=== PATIENT | male | born 1960 | race Caucasian/White ===

== ENCOUNTER 2023-06-05 06:36 | Outpatient (REF) | payer MEDICARE, SELFPAY ==
[2023-06-05 06:31] LABS: MANUAL DIFF FLAG NO
[2023-06-05 07:24] LABS: Basophils Percent Auto 0.6 % (0-2); Eosinophils Absolute Auto 0.3 X10*3/uL (0.0-0.4); Hematocrit 33.1 % (42.0-52.0); Hemoglobin 11.1 g/dl (14.0-18.0); Imm Gran Abs Auto 0.01 X10*3/uL (0.00-0.03); Imm Gran Pct Auto 0.2 % (0.0-0.4); Lymphocytes Absolute Auto 0.7 X10*3/uL (1.2-4.9); Lymphocytes Percent Auto 14.3 % (20-40); Mean Corpuscular HGB Conc 33.5 g/dl (31.0-36.0); Mean Corpuscular Hemoglobin 32.1 pg (27.0-33.0); Mean Corpuscular Volume 95.7 fL (80.0-98.0); Mean Platelet Volume 9.5 fL (9.4-12.4); Monocytes Absolute Auto 0.5 X10*3/uL (0.1-1.2); Monocytes Percent Auto 10.6 % (2-11); Neutrophils Absolute Auto 3.4 x10*3/uL (2.0-8.3); Neutrophils Percent Auto 68.3 % (45-73); Platelet Count 78 X10*3/uL (160-400); Red Blood Count 3.46 X10*6/uL (4.60-5.80); Red Cell Distribution Width 16.7 % (11.0-16.0)
[2023-06-05 07:53] LABS: Anion Gap 10 (12-20); Blood Urea Nitrogen 17 mg/dL (9-16); Carbon Dioxide 23 mmol/L (22-29); Chloride 101 mmol/L (96-108); Estimated Glomerular Filt Rate > 60; Glucose Random 110 mg/dL (60-115); Potassium 4.1 mmol/L (3.3-5.1); Sodium 130 mmol/L (135-145)
== END 2023-06-05 06:37 | disposition home or self-care (01) ==
LOC: HO.MMNH2L 06:36
PROVIDERS: Visit Provider Family Medicine
DX: K74.60 Unspecified cirrhosis of liver (principal)
CPT/HCPCS: 36415; 80048; 85025

== ENCOUNTER 2023-06-11 05:56 | Outpatient (REF) | payer MEDICARE, SELFPAY ==
[2023-06-11 05:51] LABS: MANUAL DIFF FLAG NO
[2023-06-11 07:00] LABS: Basophils Percent Auto 0.6 % (0-2); Eosinophils Absolute Auto 0.3 X10*3/uL (0.0-0.4); Eosinophils Percent Auto 4.5 % (0-4); Hematocrit 35.9 % (42.0-52.0); Imm Gran Abs Auto 0.02 X10*3/uL (0.00-0.03); Imm Gran Pct Auto 0.3 % (0.0-0.4); Lymphocytes Absolute Auto 0.9 X10*3/uL (1.2-4.9); Lymphocytes Percent Auto 13.7 % (20-40); Mean Corpuscular HGB Conc 33.4 g/dl (31.0-36.0); Mean Corpuscular Hemoglobin 31.8 pg (27.0-33.0); Mean Corpuscular Volume 95.2 fL (80.0-98.0); Monocytes Absolute Auto 0.6 X10*3/uL (0.1-1.2); Neutrophils Absolute Auto 4.5 x10*3/uL (2.0-8.3); Neutrophils Percent Auto 70.9 % (45-73); Red Blood Count 3.77 X10*6/uL (4.60-5.80); Red Cell Distribution Width 16.9 % (11.0-16.0); White Blood Count 6.3 X10*3/uL (4.8-10.8)
[2023-06-11 07:02] LABS: Anion Gap 12 (12-20); Blood Urea Nitrogen 17 mg/dL (9-16); Calcium 7.8 mg/dL (8.4-10.2); Carbon Dioxide 20 mmol/L (22-29); Chloride 101 mmol/L (96-108); Estimated Glomerular Filt Rate > 60; Glucose Random 100 mg/dL (60-115); Platelet Count 95 X10*3/uL (160-400); Potassium 4.6 mmol/L (3.3-5.1); Sodium 128 mmol/L (135-145)
== END 2023-06-11 05:57 | disposition home or self-care (01) ==
LOC: HO.MMNH2L 05:56
PROVIDERS: Visit Provider Family Medicine
DX: K74.60 Unspecified cirrhosis of liver (principal)
CPT/HCPCS: 36415; 80048; 85025

== ENCOUNTER 2023-06-29 19:13 | Inpatient (IN) | payer MEDICARE, SELFPAY ==
--- NOTE | ~2023-06-29 | CT_ITS ---
EXAMINATION: CT HEAD WITHOUT CONTRAST CLINICAL INFORMATION: Altered mental status. COMPARISON: None available. TECHNIQUE: Contiguous axial imaging was performed from the skull base to vertex without intravenous administration of contrast. This CT examination was performed using dose optimization techniques as appropriate, variously including the following: *Automated exposure control *Adjustment of mA and/or kV according to patient size (this includes techniques or standardized protocols for targeted exams where dose is matched to indication/reason for exam; i.e. extremities or head) *Use of iterative reconstruction technique DLP: 648 mGy-cm FINDINGS: There is no acute intra-axial, extra-axial bleed, masses or midline shift. There is no acute infarction in evolution. There is no edema. The osullivan to white matter differentiation is maintained normal. The lateral ventricles are symmetrical in size and configuration without enlargement. Bone windows reveal no calvarial abnormality. There is no scalp soft tissue abnormality. CT/CT head/brain wo IV con IMPRESSION: No acute intracranial process seen. .
--- NOTE | ~2023-06-29 | XR_ITS ---
EXAMINATION: XR chest 1V CLINICAL INFORMATION: Weakness COMPARISON: No prior chest x-ray of the TECHNIQUE: XR chest 1V Tubes and lines: None Lungs and pleura: Prominence of the pulmonary vasculature probably mild congestion. Crowding of lung markings probably right parahilar and right lower lobe infiltrates. Heart and mediastinum: Heart and mediastinum are widened exaggerated by AP technique and oblique projection.. Bones/soft tissue: Skeletal structures included are normal for patient's age. XR/XR chest 1V IMPRESSION: Limited portable x-ray oblique projection. * Mild vascular congestion. * Crowding of lung markings probably right parahilar and right lower lobe infiltrates. * Widened mediastinum exaggerated by AP technique and oblique projection. * Recommend correlation with follow-up chest PA and lateral when patient's condition permits.
--- NOTE | 2023-06-29 19:31 | ECG_ITS ---
Test Reason : ABNORMAL LABS Blood Pressure : / mmHG Vent. Rate : 069 BPM Atrial Rate : 069 BPM P-R Int : 174 ms QRS Dur : 106 ms QT Int : 384 ms P-R-T Axes : 009 014 013 degrees QTc Int : 411 ms Normal sinus rhythm Normal ECG No previous ECGs available Referred By: Krystina Andrews Electronically Signed By:JASPREET CRUZ
[2023-06-29 19:33] VITALS: BP 125/107; BP 152/76; PULSE 80; PULSE 84; RESP 18; TEMP 37.2; O2SAT 98; BMI 30.6
--- NOTE | 2023-06-29 19:41 | ED.RECABL ---
HPI - Recheck/Abnormal Lab/Rx General Chief Complaint: Recheck/Abnormal Lab/Rx Stated Complaint: HIGH POTASSIUM AND CREATINE Time Seen by Provider: 06/29/23 19:15 Source: patient and EMS Mode of arrival: EMS Limitations: altered mental status History of Present Illness HPI narrative: 63 yo male who has not been to our facility but usually goes to [facility] looks as if he was admitted to [facility] from [facility] just this month - he has a PMH of liver cirrhosis, liver failure, hep C, depression, esophageal varices, liver carcinoma, HTN, thrombosis of IVC EMS tells us he was sent from facility for high kidney function and high K we have no other history. The patient is sleepy cannot answer most questions he is alert and oriented to person and place - EMS states this is his baseline. He is FULL CODE [facility] records arrived 3 hours after request - review he was on palliative sorafenib, has non bandable varices, not a candidate for TIPS, on 06/12 ED admission K was 6.4 MD complaint: abnormal lab Initial visit (ago): day(s) (possibly today) Initial visit for: other (lab trend) Returns today for: called because of abnormal lab/test Description of abnormal result: high Context: called for abnormal lab result Associated symptoms: none Related Data Home Medications Medication Instructions Recorded Confirmed furosemide 40 mg tablet 40 mg PO DAILY 06/29/23 06/29/23 gabapentin 600 mg tablet 600 mg PO TID 06/29/23 06/29/23 lactulose 10 gram/15 mL oral 15 ml PO BID 06/29/23 06/29/23 solution methocarbamol 500 mg tablet 1,000 mg PO Q8H PRN Muscle Spasm 06/29/23 06/29/23 metoprolol tartrate 25 mg tablet 25 mg PO BID 06/29/23 06/29/23 oxycodone 5 mg tablet 5 mg PO Q6H PRN Pain 06/29/23 06/29/23 pantoprazole 40 mg tablet,delayed 40 mg PO DAILY 06/29/23 06/29/23 release rifaximin 550 mg tablet 550 mg PO BID 06/29/23 06/29/23 spironolactone 100 mg tablet 100 mg PO DAILY 06/29/23 06/29/23 tamsulosin 0.4 mg capsule 0.4 mg PO BEDTIME 06/29/23 06/29/23 tramadol 50 mg tablet 50 mg PO Q6H PRN Moderate Pain 06/29/23 06/29/23 (Scale Score 5-6) venlafaxine 37.5 mg tablet 37.5 mg PO DAILY 06/29/23 06/29/23 Allergies Allergy/AdvReac Type Severity Reaction Status Date / Time No Known Allergies Allergy Verified 06/29/23 22:11 Review of Systems Review of Systems: ROS unable to be obtained due to altered mental status [facility] Past Medical History Attestation statement: The following information was validated with the patient. Source: old records reviewed Medical History Alcoholic cirrhosis Liver carcinoma Hepatitis C Thrombosis of inferior vena cava HTN (hypertension) Melanoma Esophageal varices with bleeding in diseases classified elsewhere Social History Social History (Updated 06/29/23 @ 19:43 by Krystina Andrews DO) Patient Tobacco Use Status: Tobacco use Unknown Smoked in Last 30 Days: No Use of substances other than those prescribed or required for medical reasons: No Advance Directives: No Advance Directives Information Provided: No Physical Exam Vital Signs: Vital Signs: Last Vital Signs Temp 97.5 F 06/29/23 22:28 Pulse 77 06/29/23 22:28 Resp 15 06/29/23 22:28 BP 66/36 L 06/29/23 22:28 Pulse Ox 96 06/29/23 22:28 O2 Del Method Room Air 06/29/23 22:28 BMI result Body Mass Index 30.6 Appearance: Somnolent but wakes to voice. Oriented X2. No acute distress. much older than stated age Eyes: Pupils equal, round and reactive to light. ENT: Pharynx dry MM Neck: Normal inspection. Neck supple. CVS: Normal heart rate and rhythm. Pulses normal. Respiratory: No respiratory distress. Breath sounds normal. Abdomen: Soft does not grimace but he is slightly distended with ascites moderate Skin: Skin warm and dry. jaundice and pale skin color. poor skin turgor. Extremities: 2+ pitting lower extremity edema. shiny venous skin changes on both LE Neuro: Oriented X 1. No motor deficit. No sensory deficit. Course Course Course Narrative: call to Debbie - he was sleepy at oncology today he was sleepy had labs done at oncology office, has hx of elevated ammonia - he was sedated today but would have been alert and oriented around 230pm today. He told her he was cold and tired and weak. Liver carcinoma he is on sorafenib - taken off of it due to blood infection just left [facility] 10 days ago. FULL CODE, go ahead with HD. Reevaluation(s) Reevaluation #1: suspect lactic acidosis is due to chronic liver failure and dehydration and not infection or severe sepsis, has SHASHANK and elevated K - will give fluids and calcium HCO3, albuterol lokelma and consult renal IBW for patient who is obese is 156 lbs = 70 kg x 30 cc = 2126 but concern for fluid overload will start albumin and NS 500 cc Reevaluation #2: consult to nephrology 917pm Reevaluation #3: spoke to Dr. Andrade - midodrine 5mg TID, albumin Q6hr, medically manage the hyperkalemia at this time repeat BMP in 3 hours. hold diuretics. daughter Adrianna notified of plan at this time the patient will be started on antibiotics given acute change in kidney function and AMS I cannot rule out infection I have no records from [facility] possible infection suspected at this time as cause of decompensation IV cefepime ordered 937pm. SWITCHED TO MEROPENEM - ESBL + E . COLI BACTEREMIA FOLLOWING UGIB AT [facility] NO OTHER RECORDS GIVEN JUST CULTURES - 06/12 CULTURE Additional Reevaluation(s): patient became hypotensive and daughter Adrianna is at bedside I discussed with her and she called her mother about need for pressors and aggressive care at this time given his illness and poor prognosis and his treatment at [facility] is palliative and there is no cure they want to proceed with POTTERY STRIPER status - I have discussed what this means with them, ordered PRN medications and a morphine drip Medications Administered Generic Name Dose Route Start Last Admin Trade Name Freq PRN Reason Stop Dose Admin Morphine Sulfate 100 mg in 100 mls @ 0 mls/hr 06/29/23 23:00 06/30/23 00:57 Morphine Sulfate/Ns IVCONT 6 mg/hr .Q0M CARLOS 6 mls/hr Infusion Protocol Per Protocol Midazolam HCl 2 mg 06/29/23 22:46 06/30/23 00:19 Midazolam Hcl Oral Syrup 5 Mg/2.5 Ml Syrup PO 2 mg Q3H PRN Administration Anxiety Discontinued Medications Generic Name Dose Route Start Last Admin Trade Name Freq PRN Reason Stop Dose Admin Albuterol Sulfate 5 mg 06/29/23 21:10 06/29/23 21:20 Albuterol Sulfate (0.083%) 2.5 Mg/3 Ml Vial.Neb INHALE 06/29/23 21:11 5 mg ONCE ONE Administration Dextrose 25 gm 06/29/23 21:26 06/29/23 21:35 Dextrose 50 % 25 Gm/50 Ml Syringe IVPUSH 06/29/23 21:27 25 gm ONCE ONE Administration Calcium Gluconate 2 gm in 100 mls @ 50 mls/hr 06/29/23 21:09 06/29/23 23:21 Calcium Gluconate IV 06/29/23 23:08 Infused ONCE ONE Infusion Sodium Chloride 500 mls @ 500 mls/hr 06/29/23 21:15 06/29/23 22:39 Ns IV 06/29/23 22:14 Infused .Q1H CARLOS Infusion Albumin Human 100 mls @ 100 mls/hr 06/29/23 21:30 06/29/23 22:39 Kedbumin 25 % IV 06/30/23 16:29 Infused Q6H CARLOS Infusion Meropenem 1 gm/ Sodium 100 mls @ 200 mls/hr 06/29/23 22:08 06/29/23 22:39 Chloride IV 06/29/23 22:37 Infused ONCE ONE Infusion Insulin Human Regular 5 unit 06/29/23 21:26 06/29/23 21:36 Insulin Regular, Human 100 Unit/Ml 3 Ml Vial IVPUSH 06/29/23 21:27 5 unit ONCE ONE Administration Midodrine 5 mg 06/29/23 21:27 06/29/23 21:54 Midodrine Hcl 5 Mg Tablet PO 06/29/23 21:28 5 mg ONCE ONE Administration Scopolamine 1.5 mg 06/29/23 22:46 06/29/23 23:45 Scopolamine 1.5 Mg Patch.Td.3 EAR-BEHIND 06/29/23 22:47 1.5 mg ONCE ONE Administration Sodium Bicarbonate 50 meq 06/29/23 21:10 06/29/23 21:14 Sodium Bicarbonate 8.4% 50 Meq/50 Ml Syringe IVPUSH 06/29/23 21:11 50 meq ONCE ONE Administration Sodium Zirconium Cyclosilicate 5 gm 06/29/23 21:10 06/29/23 21:14 Sodium Zirconium Cyclosilicate 5 Gm Powd.Pack PO 06/29/23 21:11 5 gm ONCE ONE Administration Medical Decision Making Medical Decision Making MDM Narrative: 63 yo male who has not been to our facility but usually goes to [facility] looks as if he was admitted to [facility] from [facility] just this month - he has a PMH of liver cirrhosis, liver failure, hep C, depression, esophageal varices, liver carcinoma, HTN, thrombosis of IVC here with c/o weakness, sedation reported abnormal labs at this time basic labs, CXR, UA, ammonia level. No reported infections at this time suspect possible liver decompensation. I am going to call family and get records from [facility] as well as there is no real history at this time. He has no abdominal pain to suggest SBP. Differential Diagnosis Differential Diagnoses: The differential diagnosis associated with the presentation includes hepatic encephalopathy, SHASHANK, dehydration, lyte abnormality, liver decompensation Admission/Observation Consideration of admission/observation: Escalation of care including admission/observation considered will observe in ED but hospitalist agrees to admit as POTTERY STRIPER if patient remains on morphine drip Consult Healthcare Provider Management of the patient was discussed with: Hospitalist and Fnp (nephrology) Lab Data [facility] Lab Attestation statement: I reviewed the patient's lab results. 06/29/23 20:35 06/29/23 20:35 Labs: Lab Results 06/29/23 06/29/23 06/29/23 Range/Units 20:35 20:50 20:55 WBC 3.7 L (4.8-10.8) X10*3/uL RBC 3.01 L (4.60-5.80) X10*6/uL Hgb 9.4 L (14.0-18.0) g/dl Hct 27.7 L (42.0-52.0) % MCV 92.0 (80.0-98.0) fL MCH 31.2 (27.0-33.0) pg MCHC 33.9 (31.0-36.0) g/dl RDW 18.3 H (11.0-16.0) % Plt Count 101 L (160-400) X10*3/uL MPV 11.1 (9.4-12.4) fL Immature Gran % (Auto) 0.5 H (0.0-0.4) % Neut % (Auto) 81.3 H (45-73) % Lymph % (Auto) 9.8 L (20-40) % Slope % (Auto) 6.0 (2-11) % Eos % (Auto) 1.9 (0-4) % Baso % (Auto) 0.5 (0-2) % Lymph # (Auto) 0.4 L (1.2-4.9) X10*3/uL [place] # (Auto) 0.2 (0.1-1.2) X10*3/uL Eos # (Auto) 0.1 (0.0-0.4) X10*3/uL Baso # (Auto) 0.0 (0.0-0.2) X10*3/uL Abs Immat Gran (auto) 0.02 (0.00-0.03) X10*3/uL Absolute Neuts (auto) 3.0 (2.0-8.3) x10*3/uL Absolute Nucleated RBC 0.020 H (0.0-0.012) X10*3/uL Nucleated RBC % (auto) 0.5 H (0.0-0.2) /100WBC Smear Tech's Comments VERIFIED PT 19.1 H (11.1-13.3) SEC INR 1.6 H (0.9-1.1) VBG pH 7.36 (7.32-7.43) VBG pCO2 29 mmHg VBG pO2 42 mmHg VBG HCO3 16 L (22-26) mmol/L VBG O2 Saturation 64.0 % VBG Base Excess -7.4 mmol/L Sodium 126 L (135-145) mmol/L Potassium 7.1 H* D (3.3-5.1) mmol/L Chloride 99 (96-108) mmol/L Carbon Dioxide 14 L (22-29) mmol/L Anion Gap 20 (12-20) BUN 49 H (9-16) mg/dL Creatinine 2.48 H (0.5-1.4) mg/dL Estim Creat Clear Calc 33.5 Estimated GFR 26 POC Glucose (60-115) mg/dL Random Glucose 62 (60-115) mg/dL Lactic Acid 4.0 H* (0.5-2.0) mmol/L Calcium 7.9 L (8.4-10.2) mg/dL Magnesium 2.5 (1.6-2.6) mg/dL Total Bilirubin 3.5 H (0.0-1.0) mg/dL Direct Bilirubin 2.5 H (0.0-0.5) mg/dL AST 95 H (5-37) U/L ALT 50 H (0-40) U/L Alkaline Phosphatase 173 H (39-117) U/L Ammonia 38 (13-55) umol/L Total Creatine Kinase 108 (38-174) U/L B-Natriuretic Peptide 383 H (<100) pg/mL Total Protein 5.1 L (6.5-8.0) g/dL Albumin 1.7 L (3.5-5.0) g/dL Procalcitonin 1.07 ng/mL Urine Color Urine Appearance Urine pH (5.0-9.0) Ur Specific [place] (1.005-1.025) Urine Protein (Neg-Trace) mg/dL Urine Glucose (UA) (Negative) mg/dL Urine Ketones (Negative) mg/dL Urine Blood (Negative) Urine Nitrite (Negative) Ur Leukocyte Esterase (Negative) Urine RBC (0-2) /HPF Urine WBC (0-5) /HPF Ur Squamous Epith Cells (0-2) /HPF Urine Bacteria (None Seen) Hyaline Casts (0-2) /LPF Ur Random Sodium mmol/L Urine Creatinine mg/dL 06/29/23 06/29/23 Range/Units 22:34 22:41 WBC (4.8-10.8) X10*3/uL RBC (4.60-5.80) X10*6/uL Hgb (14.0-18.0) g/dl Hct (42.0-52.0) % MCV (80.0-98.0) fL MCH (27.0-33.0) pg MCHC (31.0-36.0) g/dl RDW (11.0-16.0) % Plt Count (160-400) X10*3/uL MPV (9.4-12.4) fL Immature Gran % (Auto) (0.0-0.4) % Neut % (Auto) (45-73) % Lymph % (Auto) (20-40) % Slope % (Auto) (2-11) % Eos % (Auto) (0-4) % Baso % (Auto) (0-2) % Lymph # (Auto) (1.2-4.9) X10*3/uL [place] # (Auto) (0.1-1.2) X10*3/uL Eos # (Auto) (0.0-0.4) X10*3/uL Baso # (Auto) (0.0-0.2) X10*3/uL Abs Immat Gran (auto) (0.00-0.03) X10*3/uL Absolute Neuts (auto) (2.0-8.3) x10*3/uL Absolute Nucleated RBC (0.0-0.012) X10*3/uL Nucleated RBC % (auto) (0.0-0.2) /100WBC Smear Tech's Comments PT (11.1-13.3) SEC INR (0.9-1.1) VBG pH (7.32-7.43) VBG pCO2 mmHg VBG pO2 mmHg VBG HCO3 (22-26) mmol/L VBG O2 Saturation % VBG Base Excess mmol/L Sodium (135-145) mmol/L Potassium (3.3-5.1) mmol/L Chloride (96-108) mmol/L Carbon Dioxide (22-29) mmol/L Anion Gap (12-20) BUN (9-16) mg/dL Creatinine (0.5-1.4) mg/dL Estim Creat Clear Calc Estimated GFR POC Glucose 63 (60-115) mg/dL Random Glucose (60-115) mg/dL Lactic Acid (0.5-2.0) mmol/L Calcium (8.4-10.2) mg/dL Magnesium (1.6-2.6) mg/dL Total Bilirubin (0.0-1.0) mg/dL Direct Bilirubin (0.0-0.5) mg/dL AST (5-37) U/L ALT (0-40) U/L Alkaline Phosphatase (39-117) U/L Ammonia (13-55) umol/L Total Creatine Kinase (38-174) U/L B-Natriuretic Peptide (<100) pg/mL Total Protein (6.5-8.0) g/dL Albumin (3.5-5.0) g/dL Procalcitonin ng/mL Urine Color Dark Yellow Urine Appearance Clear Urine pH 5.0 (5.0-9.0) Ur Specific [place] 1.015 (1.005-1.025) Urine Protein Trace (Neg-Trace) mg/dL Urine Glucose (UA) Negative (Negative) mg/dL Urine Ketones Trace (Negative) mg/dL Urine Blood Moderate (2+) H (Negative) Urine Nitrite Negative (Negative) Ur Leukocyte Esterase Small (1+) H (Negative) Urine RBC 6-10 H (0-2) /HPF Urine WBC 0-5 (0-5) /HPF Ur Squamous Epith Cells 6-10 (0-2) /HPF Urine Bacteria None Seen (None Seen) Hyaline Casts >20 (0-2) /LPF Ur Random Sodium < 20.0 mmol/L Urine Creatinine 145.96 mg/dL Independent Interpretation I performed an independent interpretation of an: EKG, Plain X-Ray and CT Scan (no ich) Interpretation: Rate: 69 Rhythm: NSR [place]: normal Normal P waves. Normal JOHN. slightly wide QRS ST T wave : normal no TRE no peaking of t waves qTC: normal prior studies: no priors but no acute ischemia The study has been interpreted contemporaneously by me. . Radiology Impression Discussion of test interpretation with radiology: I have reviewed the radiologist's reading. Independent Historian Clinical information obtained from an independent historian. History obtained from or confirmed by: Spouse and EMS External Record Review External record reviewed: Outpatient record and Prior outpatient labs Critical Care Time Critical Care Time Critical Care Time: Yes Total Critical Care Time: 90 Attestation: review of records, treatment of hyperkalemia, family consult, medical consult, IVF, I attest to this time spent taking care of the patient Discharge Plan Discharge Clinical Impression: SHASHANK (acute kidney injury), Acute hyperkalemia, Somnolence Cirrhosis Qualifiers: Hepatic cirrhosis type: alcoholic cirrhosis Ascites presence: with ascites Qualified Code(s): K70.31 - Alcoholic cirrhosis of liver with ascites Patient Disposition: Still a Patient Prescriptions: No Action furosemide 40 mg tablet 40 mg PO DAILY methocarbamol 500 mg Tablet 1,000 mg PO Q8H PRN (Reason: Muscle Spasm) gabapentin 600 mg Tablet 600 mg PO TID spironolactone 100 mg tablet 100 mg PO DAILY tramadol 50 mg Tablet 50 mg PO Q6H PRN (Reason: Moderate Pain (Scale Score 5-6)) tamsulosin 0.4 mg Capsule 0.4 mg PO BEDTIME pantoprazole 40 mg Tablet,Delayed Release (Dr/Ec) 40 mg PO DAILY venlafaxine 37.5 mg Tablet 37.5 mg PO DAILY oxycodone 5 mg Tablet 5 mg PO Q6H PRN (Reason: Pain) metoprolol tartrate 25 mg Tablet 25 mg PO BID lactulose 10 gram/15 mL Solution 15 ml PO BID rifaximin 550 mg Tablet 550 mg PO BID Sepsis Bolus Exclusion Sepsis Bolus Exclusion CHF/Renal Failure This patient met severe sepsis criteria due to the following condition(s):: Lactate>=4mmol/L In my clinical judgement the administration of 30 ml/kg of crystalloid would be detrimental to this patient due to the patient's following conditions:: Concern for fluid overload Replace the 30 mls/kg with (*zero amount not acceptable): Crystalloids amount given in mls: (rate must be at least 150cc/hr): 500 Colloids amount given in mls:: 100
[2023-06-29 19:49] VITALS: BP 108/66; PULSE 84; RESP 18; TEMP 37.2; O2SAT 98
--- NOTE | 2023-06-29 20:49 | PC.NURSE ---
Pt is a hard stick, multiple techs have tried. I placed an IV in the right AC and was able to obtain bloodwork. Pt is resting in bed at this time. He is A&x4, but sleepy and slow to respond, which is baseline per EMS.
[2023-06-29 20:52] LABS: PLT CLUMP 1; SCAN SMEAR FLAG 1
[2023-06-29 20:53] LABS: Basophils Percent Auto 0.5 % (0-2); Eosinophils Absolute Auto 0.1 X10*3/uL (0.0-0.4); Eosinophils Percent Auto 1.9 % (0-4); Hematocrit 27.7 % (42.0-52.0); Hemoglobin 9.4 g/dl (14.0-18.0); Imm Gran Abs Auto 0.02 X10*3/uL (0.00-0.03); Imm Gran Pct Auto 0.5 % (0.0-0.4); Lymphocytes Absolute Auto 0.4 X10*3/uL (1.2-4.9); Lymphocytes Percent Auto 9.8 % (20-40); MANUAL DIFF FLAG SCAN; Mean Corpuscular HGB Conc 33.9 g/dl (31.0-36.0); Mean Corpuscular Hemoglobin 31.2 pg (27.0-33.0); Mean Platelet Volume 11.1 fL (9.4-12.4); Monocytes Absolute Auto 0.2 X10*3/uL (0.1-1.2); NRBC Pct Auto 0.5 /100WBC (0.0-0.2); Neutrophils Percent Auto 81.3 % (45-73); Red Blood Count 3.01 X10*6/uL (4.60-5.80); Red Cell Distribution Width 18.3 % (11.0-16.0)
[2023-06-29 20:55] LABS: White Blood Count 3.7 X10*3/uL (4.8-10.8)
[2023-06-29 20:56] LABS: Platelet Count 101 X10*3/uL (160-400)
[2023-06-29 21:00] LABS: Venous Blood Gas Refer to POC result
[2023-06-29 21:00] LABS: VBG Base Excess -7.4 mmol/L; VBG HCO3 16 mmol/L (22-26); VBG pCO2 29 mmHg; VBG pH 7.36 (7.32-7.43); VBG pO2 42 mmHg
[2023-06-29 21:09] LABS: Ammonia 38 umol/L (13-55)
[2023-06-29 21:10] LABS: Alanine Aminotransferase 50 U/L (0-40); Albumin Level 1.7 g/dL (3.5-5.0); Alkaline Phosphatase 173 U/L (39-117); Anion Gap 20 (12-20); Aspartate Amino Transferase 95 U/L (5-37); Bilirubin Direct 2.5 mg/dL (0.0-0.5); Bilirubin Total 3.5 mg/dL (0.0-1.0); Blood Urea Nitrogen 49 mg/dL (9-16); Calcium 7.9 mg/dL (8.4-10.2); Carbon Dioxide 14 mmol/L (22-29); Chloride 99 mmol/L (96-108); Creatinine Clr Calc Pharmacy 33.5; Estimated Glomerular Filt Rate 26; Glucose Random 62 mg/dL (60-115); Magnesium 2.5 mg/dL (1.6-2.6); Potassium 7.1 mmol/L (3.3-5.1); Sodium 126 mmol/L (135-145); Total Protein 5.1 g/dL (6.5-8.0)
[2023-06-29 21:12] LABS: INTERNATIONAL NORM RATIO 1.6 (0.9-1.1); Prothrombin Time 19.1 SEC (11.1-13.3)
[2023-06-29] MEDS: Calcium Gluconate/NaCl,Iso-Osm 2 GM/100 ML PLAST..BAG IV (21:14)
[2023-06-29] MEDS: Sodium Zirconium Cyclosilicate 5 GM POWD.PACK PO (21:14)
[2023-06-29] MEDS: Sodium Bicarbonate 8.4% 50 MEQ/50 ML SYRINGE IVPUSH (21:14)
[2023-06-29 21:19] LABS: B Type Natriuretic Peptide 383 pg/mL (<100)
[2023-06-29] MEDS: Albuterol Sulfate (0.083%) 2.5 MG/3 ML VIAL.NEB 5 MG INHALE (21:20)
[2023-06-29] MEDS: 0.9 % Sodium Chloride 500 ML IV (21:21)
[2023-06-29 21:22] LABS: Procalcitonin 1.07 ng/mL
[2023-06-29 21:24] LABS: SLIDE REVIEW VERIFIED
[2023-06-29] MEDS: Dextrose 50 % 25 GM/50 ML SYRINGE IVPUSH (21:35)
[2023-06-29] MEDS: Albumin Human 25 % 100 ML IV (21:35)
[2023-06-29] MEDS: Insulin Regular, Human 100 UNIT/ML 3 ML VIAL IVPUSH (21:36)
--- NOTE | 2023-06-29 21:38 | PHA.MEDREC ---
Pharmacy Consult ? Medication Reconciliation Pharmacy has completed the medication reconciliation. Patient came from [facility] with medication list. Miriam Espinoza, EzequielD
[2023-06-29] MEDS: Midodrine HCl 5 MG TABLET PO (21:54)
[2023-06-29 22:28] VITALS: BP 66/36; PULSE 77; RESP 15; TEMP 36.4; O2SAT 96
[2023-06-29 22:40] LABS: Appearance Urine Clear; Color Urine Dark Yellow; Glucose Urine UA Negative (Negative); Leukocyte Esterase Urine Small (1+) (Negative); Nitrite Urine Negative (Negative); Specific Gravity - Urine 1.015 (1.005-1.025); UMIC TRIGGER UACC YES; Urine Blood Moderate (2+) (Negative); Urine Ketones Trace mg/dL (Negative); Urine Protein Trace mg/dL (Neg-Trace)
--- NOTE | 2023-06-29 22:41 | PC.NURSE ---
Pt has a 16fr dean catheter in, initial output approx 500mL of yellow urine with a little bit of sediment. Pt has bilateral 20g IV, medicated per MAR. Family is at the bedside at this time with Dr. Andrews. Pt is uncomfortable, reporting pain all over. Auditory wheezing is heard. Pt has low BP (68/47) and low POC (63), MD aware. Pt is now going to be on comfort measures, goal is to keep pt comfortable, per MD.
[2023-06-29 22:45] LABS: Glucose, Whole Blood 63 mg/dL (60-115)
[2023-06-29 22:51] LABS: Creatinine Urine 145.96 mg/dL; Sodium Urine Random < 20.0 mmol/L
[2023-06-29 22:56] LABS: Reflex Lactate? Lactic Acid Added
[2023-06-29 23:00] LABS: Bacteria Urine None Seen (None Seen); Hyaline Casts Urine >20 /LPF (0-2); UACC Culture Trigger YES; WBC Urine 0-5 /HPF (0-5)
[2023-06-29] MEDS: Morphine Sulfate/NS 100 MG/100 ML PLAST..BAG IVCONT (23:37)
[2023-06-29] MEDS: Scopolamine 1.5 MG PATCH.TD.3 EAR-BEHIND (23:45)
[2023-06-30] MEDS: Midazolam HCl Oral Syrup 5 MG/2.5 ML SYRUP 2 MG PO (00:19)
--- NOTE | 2023-06-30 00:24 | PC.NURSE ---
Report given to Jackelyn TORRES in Overflw, pt moved to overflow room 4. Pt was moved to hospital bed and cleaned, comfort ensured. At time of handoff, pt was running at 2mg/hr on the [employer]. 4 family members at bedside, refreshments and comfort items offered.
--- NOTE | 2023-06-30 00:38 | PC.NURSE ---
Addendum entered by Jackelyn Gonsalez RN 06/30/23 02:24: 0220- O2 sats is 85% on room air. RR is 15. Pt is sleeping. Kept on 6mg/hr morphine drip. Family requested to keep the rate. Addendum entered by Jackelyn Gonsalez RN 06/30/23 01:04: 0057- Morphine drip is titrated to 6mg/hr , family reported that patient is having some more pain. Original Note: Acquired care at 0020 past midnight. Came from ED via stretcher, transferred to overflow bed 4 under comfort measures only. Family at bedside. Pt on morphine drip of 2mg per hour. Pt is comfortable this time. Dyspniec with exertion. Pt given PO midazolam 2m mg PRN.
[2023-06-30 01:01] LABS: Cancel Lactic Acid Canceled
[2023-06-30 02:16] VITALS: RESP 15; O2SAT 85
[2023-06-30 04:00] VITALS: RESP 16
[2023-06-30 05:24] VITALS: RESP 20; O2SAT 95
--- NOTE | 2023-06-30 06:44 | PM.IMHP ---
History of Present Illness Date of Service: 06/30/23 Chief Complaint: Abnormal labs This is a 63-year-old male with past medical history of liver cirrhosis, liver failure, hep C, depression, esophageal varices, liver carcinoma, HTN, thrombosis of a BC, who comes into the hospital from [facility] after being discharged from [facility] this month. It appears the patient had labs done at the facility which showed high potassium and kidney disorder. Patient is on palliative Sorafenib. It appears the patient was seen by his oncology office and he had labs done which showed elevated ammonia and worsening kidney function as well as a. Further workup in the ED showed significant lactic acidosis as well as hypotension and dehydration, patient has SHASHANK and elevated K, also has history of ESBL E coli bacteremia well in the ED patient became significantly hypotensive. 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 Patient will be admitted for comfort measure Review of Systems Review of Systems: Yes Unobtainable due to mental condition and Unobtainable due to mental status COUNT INCLUDES THE [facility] Medical History Alcoholic cirrhosis Liver carcinoma Hepatitis C Thrombosis of inferior vena cava HTN (hypertension) Melanoma Esophageal varices with bleeding in diseases classified elsewhere Social History (Updated 06/29/23 @ 19:43 by Krystina Andrews DO) Patient Tobacco Use Status: Tobacco use Unknown Smoked in Last 30 Days: No Use of substances other than those prescribed or required for medical reasons: No Advance Directives: No Advance Directives Information Provided: No Meds Allergies Allergy/AdvReac Type Severity Reaction Status Date / Time No Known Allergies Allergy Verified 06/29/23 22:11 Active Medications: Current Medications Morphine Sulfate (Morphine Sulfate/Ns) 100 mg in 100 mls @ 0 mls/hr IVCONT .Q0M [facility]; Protocol Last Infusion: 06/30/23 00:57 Dose: 6 mg/hr, 6 mls/hr Midazolam HCl (Midazolam Hcl Oral Syrup 5 Mg/2.5 Ml Syrup) 2 mg PO Q3H PRN PRN Reason: Anxiety Last Admin: 06/30/23 00:19 Dose: 2 mg Ondansetron HCl (Ondansetron Hcl 4 Mg/2 Ml Vial) 4 mg IVPUSH TID PRN PRN Reason: Nausea and Vomiting Sodium Chloride (0.9 % Sodium Chloride Flush 3 Ml Syringe) 3 ml IVFLUSH [facility] Home Medications Medication Instructions Recorded Confirmed Last Taken Type furosemide 40 mg tablet 40 mg PO DAILY 06/29/23 06/29/23 Unknown History gabapentin 600 mg tablet 600 mg PO TID 06/29/23 06/29/23 Unknown History lactulose 10 gram/15 mL oral 15 ml PO BID 06/29/23 06/29/23 Unknown History solution methocarbamol 500 mg tablet 1,000 mg PO Q8H PRN Muscle Spasm 06/29/23 06/29/23 Unknown History metoprolol tartrate 25 mg tablet 25 mg PO BID 06/29/23 06/29/23 Unknown History oxycodone 5 mg tablet 5 mg PO Q6H PRN Pain 06/29/23 06/29/23 Unknown History pantoprazole 40 mg tablet,delayed 40 mg PO DAILY 06/29/23 06/29/23 Unknown History release rifaximin 550 mg tablet 550 mg PO BID 06/29/23 06/29/23 Unknown History spironolactone 100 mg tablet 100 mg PO DAILY 06/29/23 06/29/23 Unknown History tamsulosin 0.4 mg capsule 0.4 mg PO BEDTIME 06/29/23 06/29/23 Unknown History tramadol 50 mg tablet 50 mg PO Q6H PRN Moderate Pain 06/29/23 06/29/23 Unknown History (Scale Score 5-6) venlafaxine 37.5 mg tablet 37.5 mg PO DAILY 06/29/23 06/29/23 Unknown History Physical Exam Vital Signs and Narrative: Vital Signs: Last Vital Signs Temp 97.5 F 06/29/23 22:28 Pulse 77 06/29/23 22:28 Resp 20 06/30/23 05:24 BP 66/36 L 06/29/23 22:28 Pulse Ox 95 06/30/23 05:24 O2 Del Method Room Air 06/30/23 05:24 BMI result Body Mass Index 30.6 Const: Other: Patient is laying in bed comfortably, no apparent distress General: cooperative Eyes: General: appearance normal, both eyes and all related structures Resp: Effort & Inspection: normal respiratory effort Cardio: Rate: regular rate Rhythm: regular rhythm GI: Other: Abdominal distension Skin: General skin exam: no rashes or lesions noted Extrem: General: Yes normal to inspection Results Labs 06/29/23 20:35 06/29/23 20:35 Labs: Laboratory Results - last 24 hr 06/29/23 06/29/23 06/29/23 20:35 20:50 20:55 MCV 92.0 MCH 31.2 MCHC 33.9 RDW 18.3 H Plt Count 101 L MPV 11.1 Immature Gran % (Auto) 0.5 H Neut % (Auto) 81.3 H Lymph % (Auto) 9.8 L [place] % (Auto) 6.0 Eos % (Auto) 1.9 Baso % (Auto) 0.5 Lymph # (Auto) 0.4 L [place] # (Auto) 0.2 Eos # (Auto) 0.1 Baso # (Auto) 0.0 Abs Immat Gran (auto) 0.02 Absolute Neuts (auto) 3.0 Absolute Nucleated RBC 0.020 H Nucleated RBC % (auto) 0.5 H Smear Tech's Comments VERIFIED PT 19.1 H INR 1.6 H VBG pH 7.36 VBG pCO2 29 VBG pO2 42 VBG HCO3 16 L VBG O2 Saturation 64.0 VBG Base Excess -7.4 Anion Gap 20 Estim Creat Clear Calc 33.5 Estimated GFR 26 POC Glucose Random Glucose 62 Lactic Acid 4.0 H* Calcium 7.9 L Magnesium 2.5 Total Bilirubin 3.5 H Direct Bilirubin 2.5 H AST 95 H ALT 50 H Alkaline Phosphatase 173 H Ammonia 38 Total Creatine Kinase 108 B-Natriuretic Peptide 383 H Total Protein 5.1 L Albumin 1.7 L Procalcitonin 1.07 Urine Color Urine Appearance Urine pH Ur Specific [place] Urine Protein Urine Glucose (UA) Urine Ketones Urine Blood Urine Nitrite Ur Leukocyte Esterase Urine RBC Urine WBC Ur Squamous Epith Cells Urine Bacteria Hyaline Casts Ur Random Sodium Urine Creatinine 06/29/23 06/29/23 22:34 22:41 MCV MCH MCHC RDW Plt Count MPV Immature Gran % (Auto) Neut % (Auto) Lymph % (Auto) [place] % (Auto) Eos % (Auto) Baso % (Auto) Lymph # (Auto) [place] # (Auto) Eos # (Auto) Baso # (Auto) Abs Immat Gran (auto) Absolute Neuts (auto) Absolute Nucleated RBC Nucleated RBC % (auto) Smear Tech's Comments PT INR VBG pH VBG pCO2 VBG pO2 VBG HCO3 VBG O2 Saturation VBG Base Excess Anion Gap Estim Creat Clear Calc Estimated GFR POC Glucose 63 Random Glucose Lactic Acid Calcium Magnesium Total Bilirubin Direct Bilirubin AST ALT Alkaline Phosphatase Ammonia Total Creatine Kinase B-Natriuretic Peptide Total Protein Albumin Procalcitonin Urine Color Dark Yellow Urine Appearance Clear Urine pH 5.0 Ur Specific [place] 1.015 Urine Protein Trace Urine Glucose (UA) Negative Urine Ketones Trace Urine Blood Moderate (2+) H Urine Nitrite Negative Ur Leukocyte Esterase Small (1+) H Urine RBC 6-10 H Urine WBC 0-5 Ur Squamous Epith Cells 6-10 Urine Bacteria None Seen Hyaline Casts >20 Ur Random Sodium < 20.0 Urine Creatinine 145.96 Imaging Radiologist's Impressions: Impressions Chest X-Ray 06/29/23 19:47 IMPRESSION: Limited portable x-ray oblique projection. * Mild vascular congestion. * Crowding of lung markings probably right parahilar and right lower lobe infiltrates. * Widened mediastinum exaggerated by AP technique and oblique projection. * Recommend correlation with follow-up chest PA and lateral when patient's condition permits. Head CT 06/29/23 22:00 IMPRESSION: No acute intracranial process seen. . 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 Quality Stroke Does the patient have a stroke diagnosis?: No VTE Prior VTE?: No VTE Risk Level:: Medical - low VTE Device Contraindication: Treatment Not Indicated VTE Drug Contraindication: Treatment Not Indicated
[2023-06-30] MEDS: 0.9 % Sodium Chloride Flush 3 ML SYRINGE IVFLUSH (09:19)
--- NOTE | 2023-06-30 09:42 | P.PNIM_ITS ---
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 Physical Exam 2 Vital Signs: Vital Signs: Last Vital Signs Temp 97.5 F 06/29/23 22:28 Pulse 77 06/29/23 22:28 Resp 20 06/30/23 05:24 BP 66/36 L 06/29/23 22:28 Pulse Ox 95 06/30/23 05:24 O2 Del Method Room Air 06/30/23 05:24 BMI result Body Mass Index 30.6 Lungs normal expansion somnolent Objective Data Active Medications Morphine Sulfate (Morphine Sulfate/Ns) 100 mg in 100 mls @ 0 mls/hr IVCONT .Q0M [facility]; Protocol Last Infusion: 06/30/23 00:57 Dose: 6 mg/hr, 6 mls/hr Documented By: IVAN Midazolam HCl (Midazolam Hcl Oral Syrup 5 Mg/2.5 Ml Syrup) 2 mg PO Q3H PRN PRN Reason: Anxiety Last Admin: 06/30/23 00:19 Dose: 2 mg Documented By: IVAN Ondansetron HCl (Ondansetron Hcl 4 Mg/2 Ml Vial) 4 mg IVPUSH TID PRN PRN Reason: Nausea and Vomiting Sodium Chloride (0.9 % Sodium Chloride Flush 3 Ml Syringe) 3 ml IVFLUSH [facility] Last Admin: 06/30/23 09:19 Dose: 3 ml Documented By: MELANIA Labs 06/29/23 20:35 06/29/23 20:35 Labs: Laboratory Results - last 24 hr 06/29/23 06/29/23 06/29/23 20:35 20:50 20:55 MCV 92.0 MCH 31.2 MCHC 33.9 RDW 18.3 H Plt Count 101 L MPV 11.1 Immature Gran % (Auto) 0.5 H Neut % (Auto) 81.3 H Lymph % (Auto) 9.8 L [place] % (Auto) 6.0 Eos % (Auto) 1.9 Baso % (Auto) 0.5 Lymph # (Auto) 0.4 L [place] # (Auto) 0.2 Eos # (Auto) 0.1 Baso # (Auto) 0.0 Abs Immat Gran (auto) 0.02 Absolute Neuts (auto) 3.0 Absolute Nucleated RBC 0.020 H Nucleated RBC % (auto) 0.5 H Smear Tech's Comments VERIFIED PT 19.1 H INR 1.6 H VBG pH 7.36 VBG pCO2 29 VBG pO2 42 VBG HCO3 16 L VBG O2 Saturation 64.0 VBG Base Excess -7.4 Anion Gap 20 Estim Creat Clear Calc 33.5 Estimated GFR 26 POC Glucose Random Glucose 62 Lactic Acid 4.0 H* Calcium 7.9 L Magnesium 2.5 Total Bilirubin 3.5 H Direct Bilirubin 2.5 H AST 95 H ALT 50 H Alkaline Phosphatase 173 H Ammonia 38 Total Creatine Kinase 108 B-Natriuretic Peptide 383 H Total Protein 5.1 L Albumin 1.7 L Procalcitonin 1.07 Urine Color Urine Appearance Urine pH Ur Specific [place] Urine Protein Urine Glucose (UA) Urine Ketones Urine Blood Urine Nitrite Ur Leukocyte Esterase Urine RBC Urine WBC Ur Squamous Epith Cells Urine Bacteria Hyaline Casts Ur Random Sodium Urine Creatinine 06/29/23 06/29/23 22:34 22:41 MCV MCH MCHC RDW Plt Count MPV Immature Gran % (Auto) Neut % (Auto) Lymph % (Auto) [place] % (Auto) Eos % (Auto) Baso % (Auto) Lymph # (Auto) [place] # (Auto) Eos # (Auto) Baso # (Auto) Abs Immat Gran (auto) Absolute Neuts (auto) Absolute Nucleated RBC Nucleated RBC % (auto) Smear Tech's Comments PT INR VBG pH VBG pCO2 VBG pO2 VBG HCO3 VBG O2 Saturation VBG Base Excess Anion Gap Estim Creat Clear Calc Estimated GFR POC Glucose 63 Random Glucose Lactic Acid Calcium Magnesium Total Bilirubin Direct Bilirubin AST ALT Alkaline Phosphatase Ammonia Total Creatine Kinase B-Natriuretic Peptide Total Protein Albumin Procalcitonin Urine Color Dark Yellow Urine Appearance Clear Urine pH 5.0 Ur Specific [place] 1.015 Urine Protein Trace Urine Glucose (UA) Negative Urine Ketones Trace Urine Blood Moderate (2+) H Urine Nitrite Negative Ur Leukocyte Esterase Small (1+) H Urine RBC 6-10 H Urine WBC 0-5 Ur Squamous Epith Cells 6-10 Urine Bacteria None Seen Hyaline Casts >20 Ur Random Sodium < 20.0 Urine Creatinine 145.96 Microbiology Microbiology Results: Microbiology 06/29/23 20:50 Blood Culture - Preliminary Blood - Venous Prelim: GNR Gram Stain only 06/29/23 20:50 Blood Culture - Preliminary Blood - Venous Prelim: GNR Gram Stain only Assessment and Plan (1) Cirrhosis: Status: Acute (2) Comfort measures only status: Status: Acute Plan 63-year-old male past medical history of liver carcinoma secondary to hep C and liver cirrhosis comes into the hospital with sepsis, hyperkalemia, SHASHANK patient made POULTRY EVISCERATOR by ED physician after discussion with daughter and comfort measure only continue morphine drip may use scopolamine patch for secretions and ativan for anxiety/agitation no lab draw or vital signs supportive care Liver carcinoma dx around november had been on palliative tx and weekly large volume paracentesis Attending Dr. Rodriguez Time Spent With Patient Time: Total time managing care of this patient today ____ minutes. Quality Stroke Does the patient have a stroke diagnosis?: No VTE Prior VTE?: No VTE Risk Level:: Medical - low VTE Device Contraindication: Treatment Not Indicated VTE Drug Contraindication: Treatment Not Indicated
--- NOTE | 2023-06-30 11:37 | P.DN_ITS ---
Discharge Sum: Prov Provider Primary care physician: Unknown Physician Pronouncing clinician: Mi Olivia Discharge Sum: Diag PCOD Cause of : Liver failure Contributing Factors (1) Cirrhosis: (2) Comfort measures only status: Discharge Sum: Summary Date and Time Date of admission: 06/30/23 06:18 Date of : 06/30/23 Time of : 11:15 Summary Details: This is a 63-year-old male with past medical history of liver cirrhosis, liver failure, hep C, depression, esophageal varices, liver carcinoma, HTN, thrombosis of a BC, who comes into the hospital from [facility] after being discharged from [facility] this month. It appears the patient had labs done at the facility which showed high potassium and kidney disorder. Patient is on palliative Sorafenib. It appears the patient was seen by his oncology office and he had labs done which showed elevated ammonia and worsening kidney function as well as a. Further workup in the ED showed significant lactic acidosis as well as hypotension and dehydration, patient has SHASHANK and elevated K, also has history of ESBL E coli bacteremia well in the ED patient became significantly hypotensive. 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 Patient will be admitted for comfort measure. Patient placed on Morphine pump and at [id number] with family present Additional Data Attending physician: Mi Olivia NP
== END 2023-06-30 13:00 | disposition expired | DRG 951 ==
LOC: HO.ED 06-30 04:51 → HO.EDOVER 06-30 06:29 → HO.S3 06-30 07:29
PROVIDERS: Admitting Provider Internal Medicine; Emergency Provider Emergency Medicine; Visit Provider Nurse Practitioner Acute Care
DX: Z51.5 Encounter for palliative care (principal); C22.8 Malignant neoplasm of liver, primary, unspecified as to type; N17.9 Acute kidney failure, unspecified; R78.81 Bacteremia; E87.5 Hyperkalemia; K70.30 Alcoholic cirrhosis of liver without ascites; I95.9 Hypotension, unspecified; E86.0 Dehydration; B96.20 Unspecified Escherichia coli [E. coli] as the cause of diseases classified elsewhere; Z86.19 Personal history of other infectious and parasitic diseases; Z79.899 Other long term (current) drug therapy
CPT/HCPCS: 36415; 70450; 71045; 80048; 80076; 81001; 82140; 82550; 82570; 82803; 82947; 83605; 83735; 83880; 84145; 84300; 85025; 85610; 87040; 87077; 87086; 87186; 87205; 93005; 99285; C1758; J0613; J2185; J2270; P9047

== ENCOUNTER → 2023-06-30 06:18 | Outpatient (BNV) | payer SELFPAY | PROVIDERS: Admitting Provider Internal Medicine; Emergency Provider Emergency Medicine; Visit Provider Internal Medicine | DX: K70.31 Alcoholic cirrhosis of liver with ascites (principal); Z51.5 Encounter for palliative care | CPT/HCPCS: 99236; 99499 ==